=== PATIENT | female | born 2005 | race Caucasian/White ===

== ENCOUNTER 2024-04-27 08:16 | Emergency (ER) | payer OTHER ==
[~2024-04-27] VITALS: Ht 167.6 cm; Wt 71.8 kg
[2024-04-27] MEDS ORDERED: ETON68IM SC (08:24)
[2024-04-27 10:12] VITALS: BP 139/67; TEMP 97.5; O2SAT 98
== END 2024-04-27 10:12 | disposition home or self-care (01) ==
LOC: M ED 08:16
DX: S46.012A Strain of muscle(s) and tendon(s) of the rotator cuff of left shoulder, initial encounter (principal); M25.512 Pain in left shoulder; W19.XXXA Unspecified fall, initial encounter; Z79.899 Other long term (current) drug therapy; Y92.009 Unspecified place in unspecified non-institutional (private) residence as the place of occurrence of the external cause; Y93.89 Activity, other specified; Y99.9 Unspecified external cause status